=== PATIENT | female | born 1955 | race Caucasian/White ===

== ENCOUNTER → 2020-07-02 | Outpatient (CLI) | payer MEDICARE ==
[~2020-07-02] MED LIST: ADULT LOW DOSE81 MG PO; AMBIEN 10 MG TA10 MG PO; AMITRIPTYLINE H10 M1 PO; BENAZEPRIL HCL20 MG PO; CALCIUM PO; ESTRACE1 MG PO; FISHOIL PO; GABAPENTIN PO; IBUPROFEN; IBUPROFEN 800800 M1 PO; MAGNES PT; MEDROLDOSEPACK PO; MULTIVITAMINS PO; NIACIN 100MG T100 M1 PO; RED YEAST RICE600 MG PO; TRAMADOL 50 MG50 MG PO; VITAMIN D400 UNI1 PO
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
== END ==
LOC: M.PC 09:45
PROVIDERS: ATTEND Anesthesiology Pain Medicine
DX: M51.24 Other intervertebral disc displacement, thoracic region (principal); K21.9 Gastro-esophageal reflux disease without esophagitis; I10 Essential (primary) hypertension; E78.5 Hyperlipidemia, unspecified; F41.9 Anxiety disorder, unspecified; F33.9 Major depressive disorder, recurrent, unspecified; G47.00 Insomnia, unspecified; N32.81 Overactive bladder; L82.1 Other seborrheic keratosis; Z90.49 Acquired absence of other specified parts of digestive tract; Z90.710 Acquired absence of both cervix and uterus; Z98.890 Other specified postprocedural states; Z68.24 Body mass index [BMI] 24.0-24.9, adult; Z88.8 Allergy status to other drugs, medicaments and biological substances; Z79.891 Long term (current) use of opiate analgesic; Z79.899 Other long term (current) drug therapy

== ENCOUNTER → 2020-08-04 | Outpatient (CLI) | payer MEDICARE | END | disposition home or self-care (01) | LOC: M.PC 10:10 | PROVIDERS: ATTEND Anesthesiology Pain Medicine | DX: M54.16 Radiculopathy, lumbar region (principal); G89.29 Other chronic pain; I10 Essential (primary) hypertension; E78.5 Hyperlipidemia, unspecified; F41.9 Anxiety disorder, unspecified; F32.9 Major depressive disorder, single episode, unspecified; K21.9 Gastro-esophageal reflux disease without esophagitis; Z98.890 Other specified postprocedural states; Z79.899 Other long term (current) drug therapy; Z90.49 Acquired absence of other specified parts of digestive tract; Z90.710 Acquired absence of both cervix and uterus ==